=== PATIENT | female | born 1970 | race African-American/Black ===

== ENCOUNTER 2021-03-04 15:32 | Emergency (ER) | payer OTHER ==
[~2021-03-04] VITALS: Ht 160 cm; Wt 104.3 kg
[2021-03-04 16:06] VITALS: BP 112/50
[2021-03-04 19:57] LABS: ABSOLUTE NEUTROPHILS 1.4 thou/uL (1.4-8.2); EOSINOPHILS 2.5 % (0.0-3.0); HEMATOCRIT 40.4 % (37.0-47.0); HEMOGLOBIN 13.6 gm/dL (12.0-15.0); LYMPHOCYTES 54.5 % (24.0-44.0); MCH 28.8 pg (26.0-34.0); MCHC 33.6 g/dL (28.0-37.0); MCV 85.6 fL (80.0-100.0); PLATELET COUNT 214 thou/uL (150-400); RBC 4.72 mil/uL (4.20-5.00); RDW 14.2 % (10.5-14.5); WBC 4.3 thou/uL (4.0-11.0)
[2021-03-04 20:06] LABS: CALCIUM 8.6 mg/dL (8.5-10.1); CREATININE 0.9 mg/dL (0.6-1.0); POTASSIUM 3.8 mmol/L (3.5-5.1)
[2021-03-04 20:07] LABS: APTT 28.1 Seconds (24.5-32.8); INR 0.96; PROTIME 10.5 Seconds (10.5-12.1)
[2021-03-04 20:20] LABS: ALBUMIN 3.8 g/dL (3.4-5.0); MAGNESIUM 1.7 mg/dL (1.8-2.4); TOTAL BILIRUBIN 0.4 mg/dL (0.2-1.0); TOTAL PROTEIN 7.4 g/dL (6.4-8.2)
--- NOTE | 2021-03-05 07:30 | EKG ---
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: JAHAIRA : 1970 Requested By: Jamin Lea Order Number: [id number] MD: Rigoberto Rincon Measurements Intervals [place] Rate: 60 P: -14 [place]: 137 QRS: 29 QRSD: 95 T: 51 QT: 456 QTc: 456 Interpretive Statements Sinus rhythm Consider right atrial enlargement RSR' in V1 or V2, probably normal variant No previous ECG available for comparison Electronically Signed On 03-05-2021 7:30:15 DIRECTOR NEWS by Rigoberto Rincon [email or web address] <ELECTRONICALLY SIGNED> By: Rigoberto Rincon MD, [facility] 03/05/21 0730 1612 1612 Rigoberto Rincon MD, FACC /EPI
== END 2021-03-04 22:37 | disposition home or self-care (01) ==
LOC: ER 15:32
PROVIDERS: Nurse Practitioner
DX: U07.1 COVID-19 (principal); Z88.0 Allergy status to penicillin